=== PATIENT | male | born 1980 | race Caucasian/White ===

== ENCOUNTER 2019-05-18 14:38 | Emergency (ER) | payer SELFPAY ==
[~2019-05-18] VITALS: Ht 180.3 cm; Wt 72.6 kg
[2019-05-18 15:10] VITALS: BP 140/98
--- NOTE | 2019-05-18 15:13 | NUR ---
ED Nurse Note: pt walked in due to high blood pressure and feeling dizzy this morning. bp 140/98/ pt stated he drank alcohol last night. and was feeling funny when he woke up. pt denies headache. will continue to monitor.
--- NOTE | 2019-05-18 15:57 | Emergency Room Report ---
History of Present Illness General Chief Complaint: Hypertension Source: Patient Present Illness HPI 38 YO male presents to the emergency department complaining of headache, feeling tense all over and anxious he had the symptoms this morning and was worried that his blood pressure was high as 5 years ago he was diagnosed with high blood pressure and he has not been taking any medication since. Patient does report that he has been going through a lot of stress he has been also coughing up mucus quite frequently as he has been having seasonal allergies which is also been aggravating his bronchitis he states he is a smoker he does drink alcohol he denies illicit drug use. He denies taking any other medications at this time denies any aggravating or relieving factors. Patient does report that his symptoms he was experiencing this morning have resolved. Nuys chest pain, hemoptysis, nausea, vomiting, shortness of breath or sudden onset of headache. Denies visual changes or auditory changes. Allergies: Coded Allergies: GUAIFENESIN (Verified Allergy, Intermediate, HIVES, 05/18/19) Patient History Past Medical History: see triage record Past Surgical History: none Pertinent Family History: none Social History: Reports: smoking, alcohol use Reviewed Nursing Documentation: PMH: Agreed; PSxH: Agreed Nursing Documentation-PMH Past Medical History: No History, Except For Review of Systems All Other Systems: negative except mentioned in HPI Physical Exam Vital Signs Date Time Temp Pulse Resp B/P (MAP) Pulse Ox O2 Delivery O2 Flow Rate FiO2 05/18/19 14:45 98.6 99 17 140/98 (112) Room Air Sp02 EP Interpretation: reviewed, normal General Appearance: no apparent distress, alert, GCS 15, non-toxic Head: normocephalic, atraumatic Eyes: bilateral eye normal inspection, bilateral eye PERRL, bilateral eye EOMI , bilateral eye other - no photophobia ENT: hearing grossly normal, normal voice Neck: full range of motion, no bony tend Respiratory: chest non-tender, lungs clear, normal breath sounds, no rhonchi, no respiratory distress, speaking full sentences, wheezing - scant expiratory wheezes bilaterally Cardiovascular #1: regular rate, rhythm, no edema, normal capillary refill Gastrointestinal: non tender, soft Musculoskeletal: back normal, gait/station normal, normal range of motion, non- tender Neurologic: alert, oriented x3, responsive, motor strength/tone normal, sensory intact, speech normal, no pronator, grossly normal, grossly normal Psychiatric: judgement/insight normal, memory normal, anxious Skin: no rash Lymphatic: no adenopathy Medical Decision Making PA Attestation Dr. Wing Is my supervising Physician whom patient management has been discussed with. Diagnostic Impression: Primary Impression: Bronchitis due to tobacco use Additional Impressions: Environmental allergies Transient elevated blood pressure ER Course Pt. presents to the ED c/o elevated BP & complaining of headache, feeling tense all over and anxious he had the symptoms this morning and was worried that his blood pressure was high as 5 years ago he was diagnosed with high blood pressure and he has not been taking any medication since. Patient does report that he has been going through a lot of stress he has been also coughing up mucus quite frequently as he has been having seasonal allergies which is also been aggravating his bronchitis he states he is a smoker he does drink alcohol he denies illicit drug use. He denies taking any other medications at this time denies any aggravating or relieving factors. Patient does report that his symptoms he was experiencing this morning have resolved. Nuys chest pain, hemoptysis, nausea, vomiting, shortness of breath or sudden onset of headache. Denies visual changes or auditory changes. Ddx considered but are not limited to hypertensive urgency/emergency, aortic dissection, CVA,ICH just to name a few. Vital signs: are WNL, pt. is afebrile H&PE are most consistent with benign elevated BP reading without evidence of endstage organ symptoms/ acute damage. No focal neurological deficits.Pt. is NAD , non-Toxic in appearance. * wheezes on exam. ORDERS: none required at this time, the diagnosis is clinical ED INTERVENTIONS: None required at this time. -I do not identify an emergent condition at this time. With current presentation , pt. is stable for close outpatient follow up and conservative treatment. D/ w pt. to return promptly to ED with worsening or new symptoms.- Pt. verbalizes' understanding and agreement with proposed treatment plan. DISCHARGE: At this time pt. is stable for d/c to home. Will provide printed patient care instructions, and any necessary prescriptions. Care plan and follow up instructions have been discussed with the patient prior to discharge. Last Vital Signs Date Time Temp Pulse Resp B/P (MAP) Pulse Ox O2 Delivery O2 Flow Rate FiO2 05/18/19 15:10 99 17 Room Air 05/18/19 15:10 98.6 140/98 Disposition: HOME, SELF-CARE Condition: Stable Scripts Buspirone Hcl* (BUSPAR*) 10 Mg Tablet 10 MG ORAL BID PRN for For Anxiety for 5 Days, #15 TAB 0 Refills Prov: She Hart 05/18/19 Albuterol Sulfate* (ALBUTEROL SULFATE MDI*) 8.5 Gm Hfa.aer.ad 2 PUFF INH Q4H, #1 INH 0 Refills Prov: She Hart 05/18/19 Cetirizine Hcl* (ZYRTEC*) 10 Mg Tablet 10 MG ORAL DAILY, #30 TAB 0 Refills Prov: She Hart 05/18/19 Referrals: NOT CHOSEN IPA/,REFERRING (PCP) Patient Instructions: Acute Bronchitis, [id number], Form - Blood Pressure Record Sheet, How to Take Your Blood Pressure, [id number] Additional Instructions: Take medications as directed. Follow up with a Primary Care Provider in 3-5 days, even if your symptoms have resolved. --Please review list of primary care clinics, if you do not already have a primary care provider Return sooner to ED if new symptoms occur, or current symptoms become worse. - Please note that this Emergency Department Report was dictated using [employer] technology software, occasionally this can lead to erroneous entry secondary to interpretation by the dictation equipment. Seh Hart May 18, 2019 15:57
[2019-05-18] MEDS ORDERED: ZYRTEC10 MG ORAL (15:58)
[2019-05-18] MEDS ORDERED: BUSPAR10 MG ORAL (15:58)
[2019-05-18] MEDS ORDERED: ALBUTEROL SULF8.5 GM INH (15:58)
[2019-05-18 16:30] VITALS: BP 140/98
--- NOTE | 2019-05-18 16:30 | NUR ---
ER DISCHARGE NOTE: Patient is cleared to be discharged per ERMD, pt is aox4, on room air, with stable vital signs. pt was given dc and prescription instructions, pt was able to verbalize understanding, pt id band removed without complications. pt is able to ambulate with steady gait. pt took all belongings.
== END 2019-05-18 16:30 | disposition home or self-care (01) ==
LOC: EMR 15:00
DX: J40 Bronchitis, not specified as acute or chronic (principal); Z72.0 Tobacco use; R03.0 Elevated blood-pressure reading, without diagnosis of hypertension; Z88.8 Allergy status to other drugs, medicaments and biological substances
CPT/HCPCS: 99282